=== PATIENT | male | born 1940 | race Caucasian/White ===

== ENCOUNTER 2016-07-09 23:04 | Inpatient (IN) | payer MEDICARE, MEDICAID ==
[~2016-07-09] VITALS: Ht 172.7 cm; Wt 95.4 kg
[~2016-07-09 23:04] MED LIST: AMARYL 2MG T2 MG/TAB PO; AMPICILLIN500 MG PO; ANTI-DIARRHEAL2 MG PO; ASPIRIN 81M81 MG/TA2 PO; ASPIRIN E.C. 8181 MG PO; ATIVAN 0.50.5 MG/TAB PO; BUMEX2 MG PO; CARDURA 2MG2 MG PO; CEFTIN500 MG PO; CIPRO 250MG TA250 MG PO; COLACE 100100 MG/CAP PO; COZAAR 50MG50 MG/TAB PO; DOXYCYCLINE 10100 MG PO; FLAGYL500 MG PO; FOLIC ACID 11 MG/TA1 PO; GERI-TUSSI100 MG/5 M PO; LANTUS100 U/ML SQ; LASIX 40MG TABL40 MG PO; LEVAQUIN 2250 MG/TAB PO; LEVAQUIN 5500 MG/TA1 PO; LEXAPRO 10MG10 MG PO; LEXAPRO 5MG5 MG PO; LORTAB 5/500 501 TAB PO; LOTRIMIN CREAM15 GM TP; MUCINEX 60600 MG/TA1 PO; MULTI VITAMINS1 TAB PO; NEPHROCAP PO; NEURONTIN100 MG/CAP PO; NORCO 325 MG-101 TAB PO; NORCO 325 MG-51 TAB PO; NORVASC 10MG10 MG PO; NORVASC 5MG5 MG/TAB PO; NOVOLOG 100U100 U/M1 SC; OXY IR5 MG PO; PERCOCET 325 MG1 TA2 PO; PERCOCET 325 MG1 TAB PO; PHOS LO PO; PHOSLO667 MG PO; PRILOSEC 20MG20 MG PO; PRILOTC; REFRESH TEARS 330 ML OU; TESSALON P100 MG/CAP PO; TIAZAC300 MG PO; TRADJENTA5 MG PO; TYLENOL 325MG325 MG PO; TYLENOL 500MG500 MG PO; TYLENOL ARTHRI650 M1 PO; ULTRAM 50MG TAB50 MG PO; UNABLE; VITAMIN C500 MG PO; ZOFRAN ODT4 MG PO; ZOFRAN8 MG PO; ZYLOPRIM 100MG100 MG PO; ZYLOPRIM 300MG300 MG PO
[2016-07-09 23:31] LABS: MEAN CELL VOLUME 98 fl (80.0-100.0); MEAN CORPUSCULAR HGB CONC 32 g/dl (33.0-37.0); MEAN PLATELET VOLUME 10.3 fl (7.4-10.4); PLATELET COUNT 243 K/mm3 (130-400); RED BLOOD COUNT 2.48 M/mm3 (4.20-5.60); REDCELL DISTRIBUTION WIDTH-CV 16.2 % (11.5-14.5); WHITE BLOOD COUNT 14.6 K/mm3 (4.8-10.8)
[2016-07-09 23:35] LABS: HEMATOCRIT 24.4 % (42.0-52.0); HEMOGLOBIN 7.7 g/dl (13.5-18.0); MEAN CORPUSCULAR HEMOGLOBIN 31 pg (27.0-31.0)
[2016-07-09 23:38] LABS: ADD PATHOLOGY DIFF REVIEW NO
[2016-07-09 23:51] LABS: ANISOCYTOSIS 1+; BAND 11 % (0-10); EOSINOPHIL 1 % (0-4); NEUTROPHILS 81 % (42.0-75.2); PLATELET ESTIMATE NORMAL (NORMAL); TOTAL CELLS COUNTED 100
[2016-07-09 23:54] LABS: ADJUSTED CALCIUM 8.6 mg/dL (8.4-10.2); ALBUMIN 3.4 gm/dL (3.5-5.0); BILIRUBIN,TOTAL 0.7 mg/dL (0.0-1.0); CALCIUM 8.1 mg/dL (8.4-10.2)
[2016-07-09 23:58] LABS: CREATININE, serum 6.8 mg/dL (0.66-1.25); POTASSIUM 6.5 mmol/L (3.4-5.0)
[2016-07-10 00:10] LABS: PROLACTIN 23.5 ng/mL (3.7-17.9)
[2016-07-10 01:16] VITALS: BP 113/64; PULSE 59; TEMP 97.4
[2016-07-10 03:22] VITALS: BP 141/70; PULSE 74; TEMP 97.6
[2016-07-10 07:19] LABS: MEAN CELL VOLUME 99 fl (80.0-100.0); MEAN CORPUSCULAR HGB CONC 31 g/dl (33.0-37.0); MEAN PLATELET VOLUME 10.8 fl (7.4-10.4); PLATELET COUNT 308 K/mm3 (130-400); RED BLOOD COUNT 2.68 M/mm3 (4.20-5.60); REDCELL DISTRIBUTION WIDTH-CV 16.3 % (11.5-14.5); WHITE BLOOD COUNT 13.1 K/mm3 (4.8-10.8)
[2016-07-10 07:22] LABS: ADD PATHOLOGY DIFF REVIEW NO; HEMATOCRIT 26.5 % (42.0-52.0); HEMOGLOBIN 8.3 g/dl (13.5-18.0); MEAN CORPUSCULAR HEMOGLOBIN 31 pg (27.0-31.0)
[2016-07-10 07:27] LABS: CALCIUM 8.5 mg/dL (8.4-10.2)
[2016-07-10 07:44] LABS: BAND 2 % (0-10); BASOPHIL 1 % (0-2); NEUTROPHILS 92 % (42.0-75.2); PLATELET ESTIMATE NORMAL (NORMAL); TOTAL CELLS COUNTED 100
[2016-07-10 08:03] LABS: CREATININE, serum 7.01 mg/dL (0.66-1.25); POTASSIUM 6.2 mmol/L (3.4-5.0)
[2016-07-10 08:52] VITALS: BP 130/77; PULSE 61; TEMP 97.8
[2016-07-10 15:51] VITALS: BP 106/61; PULSE 103; TEMP 97.8
[2016-07-10 21:19] VITALS: BP 136/87; PULSE 102; TEMP 98.1
[2016-07-11 00:48] VITALS: BP 139/91; PULSE 60; TEMP 97.4
[2016-07-11 04:16] VITALS: BP 150/73; PULSE 67; TEMP 97.4
[2016-07-11 06:57] LABS: BASO % 0.4 % (0.0-2.0); EOS % 0.6 % (0-4.0); GRAN # 5.9 (1.4-6.5); GRAN % 83.7 % (42.2-75.2); LYMPH # 0.5 (1.2-3.4); LYMPH % 6.8 % (20.0-51.0); MEAN CELL VOLUME 95 fl (80.0-100.0); MEAN CORPUSCULAR HGB CONC 32 g/dl (33.0-37.0); MEAN PLATELET VOLUME 10.2 fl (7.4-10.4); MONO # 0.6 (0.1-0.6); MONO % 8.2 % (1.7-9.3); PLATELET COUNT 277 K/mm3 (130-400); RED BLOOD COUNT 3.31 M/mm3 (4.20-5.60); REDCELL DISTRIBUTION WIDTH-CV 15.9 % (11.5-14.5); WHITE BLOOD COUNT 7.1 K/mm3 (4.8-10.8)
[2016-07-11 07:02] LABS: CALCIUM 8.3 mg/dL (8.4-10.2); POTASSIUM 4.7 mmol/L (3.4-5.0)
[2016-07-11 07:06] LABS: CREATININE, serum 4.59 mg/dL (0.66-1.25)
[2016-07-11 07:09] LABS: HEMATOCRIT 31.4 % (42.0-52.0); HEMOGLOBIN 10.1 g/dl (13.5-18.0); MEAN CORPUSCULAR HEMOGLOBIN 31 pg (27.0-31.0)
[2016-07-11 08:00] VITALS: BP 127/61; PULSE 106; TEMP 98.3
[2016-07-11 11:44] VITALS: BP_SYST 08
== END 2016-07-11 12:23 | DRG 640 ==
LOC: COL.ER 23:04 → MEDICAL 07-10 00:04
PROVIDERS: Family Medicine; Internal Medicine
PROC: 5A1D60Z (ICD-10-PCS; principal; 2016-07-10)
DX: E87.70 Fluid overload, unspecified (principal); N18.6 End stage renal disease; I12.0 Hypertensive chronic kidney disease with stage 5 chronic kidney disease or end stage renal disease; N25.81 Secondary hyperparathyroidism of renal origin; E11.22 Type 2 diabetes mellitus with diabetic chronic kidney disease; Z99.2 Dependence on renal dialysis; Z91.15 Patient's noncompliance with renal dialysis; E87.5 Hyperkalemia; D63.1 Anemia in chronic kidney disease; Z87.891 Personal history of nicotine dependence; E11.65 Type 2 diabetes mellitus with hyperglycemia; G89.29 Other chronic pain; Z79.4 Long term (current) use of insulin; E11.51 Type 2 diabetes mellitus with diabetic peripheral angiopathy without gangrene; Z89.512 Acquired absence of left leg below knee
CPT/HCPCS: J1644; J1815

== ENCOUNTER 2016-07-18 14:38 | Inpatient (IN) | payer MEDICARE, MEDICAID ==
[2016-07-18 15:54] VITALS: BP 127/77; PULSE 111; TEMP 98.2
[2016-07-18 17:05] LABS: BASO % 0.3 % (0.0-2.0); EOS # 0.1 (0.0-0.7); EOS % 0.6 % (0-4.0); GRAN # 11.2 (1.4-6.5); GRAN % 85.9 % (42.2-75.2); LYMPH # 0.9 (1.2-3.4); LYMPH % 6.7 % (20.0-51.0); MEAN CELL VOLUME 100 fl (80.0-100.0); MEAN CORPUSCULAR HGB CONC 31 g/dl (33.0-37.0); MEAN PLATELET VOLUME 9.9 fl (7.4-10.4); MONO # 0.8 (0.1-0.6); MONO % 5.9 % (1.7-9.3); PLATELET COUNT 413 K/mm3 (130-400); REDCELL DISTRIBUTION WIDTH-CV 17.4 % (11.5-14.5)
[2016-07-18 17:06] LABS: HEMATOCRIT 28.9 % (42.0-52.0); MEAN CORPUSCULAR HEMOGLOBIN 31 pg (27.0-31.0)
[2016-07-18 17:18] LABS: ALBUMIN 3.5 gm/dL (3.5-5.0); BILIRUBIN,TOTAL 0.7 mg/dL (0.0-1.0); CALCIUM 8.6 mg/dL (8.4-10.2); PHOSPHOROUS 4.9 mg/dL (2.5-4.5); POTASSIUM 4.8 mmol/L (3.4-5.0); TOTAL PROTEIN 7.1 gm/dL (6.4-8.2)
[2016-07-18 17:27] LABS: CREATININE, serum 4.59 mg/dL (0.66-1.25)
[2016-07-18 20:10] VITALS: BP 94/66; PULSE 93; TEMP 97.5
[2016-07-19 00:02] VITALS: BP 110/68; PULSE 60
[2016-07-19 03:49] VITALS: BP 104/70; PULSE 77; TEMP 97.4
[2016-07-19 06:57] LABS: BASO % 0.3 % (0.0-2.0); EOS % 0.3 % (0-4.0); GRAN # 12.7 (1.4-6.5); LYMPH # 0.8 (1.2-3.4); LYMPH % 5.3 % (20.0-51.0); MEAN CELL VOLUME 101 fl (80.0-100.0); MEAN CORPUSCULAR HGB CONC 31 g/dl (33.0-37.0); MEAN PLATELET VOLUME 10.6 fl (7.4-10.4); MONO % 6.5 % (1.7-9.3); PLATELET COUNT 471 K/mm3 (130-400); REDCELL DISTRIBUTION WIDTH-CV 17.8 % (11.5-14.5); WHITE BLOOD COUNT 14.6 K/mm3 (4.8-10.8)
[2016-07-19 07:01] LABS: HEMATOCRIT 33.4 % (42.0-52.0); HEMOGLOBIN 10.2 g/dl (13.5-18.0); MEAN CORPUSCULAR HEMOGLOBIN 31 pg (27.0-31.0)
[2016-07-19 07:05] LABS: ALBUMIN 3.8 gm/dL (3.5-5.0); CALCIUM 8.8 mg/dL (8.4-10.2); PHOSPHOROUS 7.3 mg/dL (2.5-4.5); POTASSIUM 5.7 mmol/L (3.4-5.0)
[2016-07-19 07:39] LABS: CREATININE, serum 5.22 mg/dL (0.66-1.25)
[2016-07-19 12:32] VITALS: BP 83/67; PULSE 113; TEMP 98.4
[2016-07-19 16:08] VITALS: BP 97/63; PULSE 110; TEMP 97.4
== END 2016-07-19 20:45 | disposition expired | DRG 314 ==
LOC: MEDICAL 14:38
PROVIDERS: Internal Medicine Nephrology
PROC: 5A1D00Z (ICD-10-PCS; principal; 2016-07-19)
DX: I31.3 Pericardial effusion (noninflammatory) (principal); N18.6 End stage renal disease; I12.0 Hypertensive chronic kidney disease with stage 5 chronic kidney disease or end stage renal disease; J90 Pleural effusion, not elsewhere classified; E11.22 Type 2 diabetes mellitus with diabetic chronic kidney disease; Z99.2 Dependence on renal dialysis; Z91.15 Patient's noncompliance with renal dialysis; D63.1 Anemia in chronic kidney disease; I73.9 Peripheral vascular disease, unspecified; Z89.512 Acquired absence of left leg below knee; Z87.891 Personal history of nicotine dependence; E87.5 Hyperkalemia
CPT/HCPCS: J1644; J2405; J2543; J7050; Q9967